=== PATIENT | male | born 1990 ===

== ENCOUNTER 2020-11-06 10:51 | Outpatient (CLI) | payer OTHER ==
[2020-11-06 11:38] LABS: Alanine Aminotransferase 48 units/L (7-56); Albumin 4.7 g/dL (3.9-5); Blood Urea Nitrogen 8 mg/dL (9-20); Calcium 9.3 mg/dL (8.4-10.2); HDL Cholesterol 30 mg/dL (40-59); Hemolysis Index 12; LDL Cholesterol,Direct 100 mg/dL (50-130)
[2020-11-06 11:43] LABS: BUN/Creatinine Ratio 16
[2020-11-06 11:51] LABS: Basophils % (Auto) 0.4 % (0.0-1.8); Eosinophils % (Auto) 0.7 % (0.0-4.3); Lymphocytes # (Auto) 2.6 K/mm3 (1.2-5.4); Mean Corpuscular HGB Conc 36 % (32-34); Mean Corpuscular Volume 90 fl (84-94); Monocytes # (Auto) 0.2 K/mm3 (0.0-0.8); Monocytes % (Auto) 4.3 % (0.0-7.3); Platelet Count 203 K/mm3 (140-440); Red Blood Count 5.24 M/mm3 (3.65-5.03); Red Cell Distribution Width 12.1 % (13.2-15.2)
[2020-11-06 12:09] LABS: Hematocrit 46.9 % (35.5-45.6); Hemoglobin 16.7 gm/dl (11.8-15.2)
[2020-11-06 13:18] LABS: Creatinine,Urine 94.9 mg/dL (0.1-20.0); Microalbumin/Creatinine Ratio 109.5 ug/mg
[2020-11-06 13:59] LABS: Bilirubin,Urine Negative (Negative); Color,Urine Yellow (Yellow)
[2020-11-06 14:00] LABS: Blood,Urine 1+ (Negative)
[2020-11-06 14:01] LABS: Protein,Urine <15 mg/dL mg/dL (Negative)
[2020-11-06 14:08] LABS: RBC,Urine < 1.0 /HPF (0.0-6.0); WBC,Urine < 1.0 /HPF (0.0-6.0)
[2020-11-10 12:34] LABS: Vitamin D, 25-OH, D2 <4 ng/mL
== END 2020-11-06 10:52 | disposition home or self-care (01) ==
LOC: LAB 10:51
PROVIDERS: ATTEND Internal Medicine
DX: Z13.29 Encounter for screening for other suspected endocrine disorder (principal); Z00.00 Encounter for general adult medical examination without abnormal findings; E11.65 Type 2 diabetes mellitus with hyperglycemia; E78.5 Hyperlipidemia, unspecified; I10 Essential (primary) hypertension; E55.9 Vitamin D deficiency, unspecified
CPT/HCPCS: 36415; 80053; 80061; 81001; 82043; 82306; 83036; 84443; 85025